=== PATIENT | female | born 2000 ===

== ENCOUNTER 2018-10-06 16:49 | Emergency (ER) | payer SELFPAY ==
[2018-10-06] MEDS ORDERED: Sodium Chloride 0.9% 10 ML Syringe FLUSH PRN (16:57)
--- NOTE | 2018-10-06 17:21 | EDM.PDOC ---
ED HPI GENERAL MEDICAL PROBLEM - General Source of Information: Reports: Patient - History of Present Illness Onset: Today, Sudden <Madhuri Simms - Last Filed: 10/06/18 19:55> <Teddy Garrett - Last Filed: 10/07/18 07:32> - General Chief Complaint: ARTILL[employer] OR [employer] Problem Stated Complaint: MISCARRIAGE? Time Seen by Provider: 10/06/18 17:19 - History of Present Illness INITIAL COMMENTS - FREE TEXT/NARRATIVE: Patient is a 17 year old female presenting at about 12 weeks gestation via 10w ultrasound at [facility] with acute onset vaginal bleeding. Patient reports that she noticed bright red vaginal bleeding that began 20 minutes ago after intercourse. She took a shower and noticed continual bleeding with 4-5 bright red blood clots. She denies any pain. She feels the bleeding has not slowed down but has also not gotten worse. She denies lightheadedness, dizziness, headache, vision changes, fever, chills, bleeding/clotting disorders , chest pain, shortness of breath, abdominal pain, trauma, rash/swelling. ( Madhuri Simms) - Related Data Allergies Allergy/AdvReac Type Severity Reaction Status Date / Time No Known Allergies Allergy Verified 10/06/18 17:02 Home Meds: Home Meds Vits #93/Iron Fum/FA [ Formula Tablet] 1 each PO DAILY [History] Past Medical History - Past Health History Medical/Surgical History: Denies Medical/Surgical History <Madhuri Simms - Last Filed: 10/06/18 19:55> Social & Family History - Family History Family Medical History: Noncontributory - Tobacco Use Smoking Status *Q: Former Smoker Used Tobacco, but Quit: Yes Month/Year Tobacco Last Used: jul, 2018 - Caffeine Use Caffeine Use: Reports: Tea - Recreational Drug Use Recreational Drug Use: No <Madhuri Simms - Last Filed: 10/06/18 19:55> ED ROS GENERAL - Review of Systems Review Of Systems: ROS reveals no pertinent complaints other than HPI. <Madhuri Simms - Last Filed: 10/06/18 19:55> ED EXAM - Physical Exam Exam: See Below General Appearance: Alert, WD/WN, No Apparent Distress, Anxious Eye Exam: Bilateral Eye: Normal Inspection Ears: Normal External Exam Nose: Normal Inspection Throat/Mouth: Normal Inspection Head: Atraumatic, Normocephalic Neck: Normal Inspection, Supple Respiratory/Chest: No Respiratory Distress, Lungs Clear Cardiovascular: Tachycardia (regular rhythm) GI/Abdominal Exam: Normal Bowel Sounds, Soft, Non-Tender, No Distention Fundal Height In cm: 0 (Unable to palpate at 12 weeks gestation) Movement: Not Appreciated Extremities: Normal Inspection Neurological: Alert, Oriented, CN II-XII Intact Skin Exam: Warm, Dry, Intact, Normal Color <Madhuri Simms - Last Filed: 10/06/18 19:55> Course <Madhuri Simms - Last Filed: 10/06/18 19:55> <Teddy Garrett - Last Filed: 10/07/18 07:32> - Vital Signs Last Recorded V/S: Last Vital Signs Temp 37.0 C 10/06/18 16:55 Pulse 139 H 10/06/18 16:55 Resp 20 10/06/18 16:55 BP 123/61 10/06/18 16:55 Pulse Ox 100 10/06/18 16:55 - Orders/Labs/Meds Orders: Active Orders 24 hr Category Date Time Status Peripheral IV Care [RC] . DIRECTED Care 10/06/18 16:57 Active Peripheral IV Insertion Adult [OM.PC] Stat Oth 10/06/18 16:57 Ordered Labs: Laboratory Tests 10/06/18 10/06/18 10/06/18 Range/Units 17:13 17:13 17:13 WBC 13.2 H (5.0-10.0) 10^3/uL RBC 4.54 (4.2-5.4) 10^6/uL Hgb 13.5 (12.0-16.0) g/dL Hct 40.7 (37.0-47.0) % MCV 89.6 (80-100) fL MCH 29.7 (27.0-34.0) pg MCHC 33.2 (33.0-35.0) g/dL Plt Count 251 (150-450) 10^3/uL Neut % (Auto) 69.4 (42.2-75.2) % Lymph % (Auto) 18.8 L (20.5-50.1) % [place] % (Auto) 7.4 (2-8) % Eos % (Auto) 4.3 H (1.0-3.0) % Baso % (Auto) 0.1 (0.0-1.0) % Sodium 132 L (135-145) mmol/L Potassium 3.3 L (3.6-5.0) mmol/L Chloride 98 L (101-111) mmol/L Carbon Dioxide 20.0 L (21.0-31.0) mmol/L Anion Gap 17.3 BUN 6 L (7-18) mg/dL Creatinine 0.5 L (0.6-1.3) mg/dL Est Cr Clr Drug Dosing 143.13 mL/min Estimated GFR (MDRD) > 60 BUN/Creatinine Ratio 12.00 Glucose 102 (74-105) mg/dL Calcium 9.8 (8.4-10.2) mg/dl Total Bilirubin 0.3 (0.2-1.0) mg/dL AST 25 (10-42) IU/L ALT 14 (10-60) IU/L Alkaline Phosphatase 49 (42-121) IU/L Total Protein 8.6 H (6.7-8.2) g/dl Albumin 4.5 (3.2-5.5) g/dl Globulin 4.1 Albumin/Globulin Ratio 1.10 HCG, Quant > 1359 H (0-25) mIU/ml Beta HCG, Quant 364040 mIU/ml Blood Type Gel Antibody Screen 10/06/18 Range/Units 17:13 WBC (5.0-10.0) 10^3/uL RBC (4.2-5.4) 10^6/uL Hgb (12.0-16.0) g/dL Hct (37.0-47.0) % MCV (80-100) fL MCH (27.0-34.0) pg MCHC (33.0-35.0) g/dL Plt Count (150-450) 10^3/uL Neut % (Auto) (42.2-75.2) % Lymph % (Auto) (20.5-50.1) % Independence % (Auto) (2-8) % Eos % (Auto) (1.0-3.0) % Baso % (Auto) (0.0-1.0) % Sodium (135-145) mmol/L Potassium (3.6-5.0) mmol/L Chloride (101-111) mmol/L Carbon Dioxide (21.0-31.0) mmol/L Anion Gap BUN (7-18) mg/dL Creatinine (0.6-1.3) mg/dL Est Cr Clr Drug Dosing mL/min Estimated GFR (MDRD) BUN/Creatinine Ratio Glucose (74-105) mg/dL Calcium (8.4-10.2) mg/dl Total Bilirubin (0.2-1.0) mg/dL AST (10-42) IU/L ALT (10-60) IU/L Alkaline Phosphatase (42-121) IU/L Total Protein (6.7-8.2) g/dl Albumin (3.2-5.5) g/dl Globulin Albumin/Globulin Ratio HCG, Quant (0-25) mIU/ml Beta HCG, Quant mIU/ml Blood Type A POSITIVE Gel Antibody Screen Negative Meds: Medications Discontinued Medications Generic Name Dose Route Start Last Admin Trade Name Freq PRN Reason Stop Dose Admin Sodium Chloride 10 ml 10/06/18 16:57 10/06/18 17:15 Saline Flush FLUSH 10 ml ASDIRECTED PRN Administration Keep Vein Open - Re-Assessments/Exams Free Text/Narrative Re-Assessment/Exam: 10/06/18 1800 I personally performed or re-performed the physical examination and medical decision making. I have verified all student documentation or findings, including history, physical exam and/or medical decision making. 10/06/18 1801 Patient's bleeding resolved while in the emergency department and only had a scant amount of blood on her pad. She continued to have no abdominal pain cramping or discomfort. Her hCG is appropriate for the weeks gestation. She is Rh+. I spoke with Dr. Still who is oncall for OB. Discharge home at this time. Recheck clinic in 2 days return if any worsening or new symptoms. The patient was comfortable with this plan and her questions answered. (Teddy Garrett) Departure - Departure Time of Disposition: 19:55 - Discharge Information *PRESCRIPTION DRUG MONITORING PROGRAM REVIEWED*: No *COPY OF PRESCRIPTION DRUG MONITORING REPORT IN PATIENT EHSAN: No <Madhuri Simms - Last Filed: 10/06/18 19:55> - Departure Time of Disposition: 19:50 <Teddy Garrett - Last Filed: 10/07/18 07:32> - Departure Disposition: Home, Self-Care 01 Clinical Impression: First trimester bleeding, Threatened - Discharge Information Instructions: Threatened Miscarriage, [id number], Vaginal Bleeding During , First Trimester, [id number] Forms: ED Department Discharge Additional Instructions: Pelvic rest. No sexual intercourse. Continue previous therapies. See your PCP OB saturday in the clinic for recheck labs and physical. Return if any new or worsening symptoms. - Problem List Review Problem List Initiated/Reviewed/Updated: Yes <Madhuri Simms - Last Filed: 10/06/18 19:55> <Teddy Garrett - Last Filed: 10/07/18 07:32> - My Orders Last 24 Hours: My Active Orders 10/06/18 16:57 Peripheral IV Care [RC] . DIRECTED Peripheral IV Insertion Adult [OM.PC] Stat - Assessment/Plan Last 24 Hours: My Active Orders 10/06/18 16:57 Peripheral IV Care [RC] . DIRECTED Peripheral IV Insertion Adult [OM.PC] Stat Assessment:: Patient is a 17 year old female at about 12 weeks gestation presenting with vaginal bleeding for 20 minutes. (Madhuri Simms) 1st trimester with vaginal bleeding. Threatened . (Teddy Garrett) Plan: 1. Beta HCG 2. CBC 3. Rh factor for potential need for RhoGam. (Madhuri Simms) Pelvic rest. No sexual intercourse. Continue previous therapies. See your PCP OB saturday in the clinic for recheck labs and physical. Return if any new or worsening symptoms. (Teddy Garrett)
[2018-10-06 17:50] LABS: ANION GAP 17.3; CHLORIDE,CL 98 mmol/L (101-111); SODIUM,NA 132 mmol/L (135-145)
== END 2018-10-06 20:13 | disposition home or self-care (01) ==
LOC: DL.ED 16:49
DX: O20.0 Threatened abortion (principal); Z3A.12 12 weeks gestation of pregnancy; Z79.899 Other long term (current) drug therapy; Z87.891 Personal history of nicotine dependence
CPT/HCPCS: 36415; 80053; 84702; 85025; 86850; 86900; 86901; 99284